=== PATIENT | male | born 1965 | race Caucasian/White ===

== ENCOUNTER 2021-08-08 11:24 | Emergency (ER) | payer OTHER ==
[~2021-08-08] VITALS: Ht 170.2 cm; Wt 68.2 kg
[2021-08-08 11:38] VITALS: BP 144/99
[2021-08-08] MEDS ORDERED: CLON-592 PO (11:44)
[2021-08-08 11:52] LABS: BASOPHILS % (AUTO) 0.3 % (0.0-2.0); EOSINOPHILS % (AUTO) 0.3 % (1.0-6.0); HEMATOCRIT 46.3 % (41-53); HEMOGLOBIN 15.8 g/dL (13.5-17.5); LYMPHOCYTES # (AUTO) 1.8 K/uL (1.0-4.8); LYMPHOCYTES % (AUTO) 23.4 % (22.0-44.0); MEAN CORPUSCULAR HGB CONC 34.2 G/dL (31.0-37.0); MEAN CORPUSCULAR VOLUME 88 fL (80-100); MONOCYTES # (AUTO) 0.9 K/uL (0.1-1.0); MONOCYTES % (AUTO) 11.4 % (2.0-9.0); NEUTROPHILS % (AUTO) 64.6 % (40.0-70.0); PLATELET COUNT (AUTO) 273 K/uL (150-450); RED BLOOD CELL COUNT(AUTO) 5.28 MIL/uL (4.50-5.90); RED CELL DISTRIBUTION WIDTH 13.6 % (11.5-14.5)
[2021-08-08 12:01] LABS: ANION GAP 9 mmol/L (8-16); CARBON DIOXIDE 23 mmol/L (22-29); CHLORIDE 103 mmol/L (98-107); GLUCOSE,RANDOM 122 mg/dL (70-110); POTASSIUM 3.6 mmol/L (3.5-5.1); SODIUM SERUM 135 mmol/L (136-145); UREA NITROGEN, BLOOD 7 mg/dL (7-18)
[2021-08-08 12:02] LABS: GLOMERULAR FILTR. RATE CALC > 60 mL/min (>60)
[2021-08-08 12:08] LABS: ALANINE AMINOTRANSFERASE 20 U/L (12-78); ALBUMIN 4.1 g/dL (3.4-5.0); ALKALINE PHOSPHATASE 110 U/L (46-116); ASPARTATE AMINOTRANSFERASE 19 U/L (15-37); BILIRUBIN,TOTAL 0.5 mg/dL (0.1-1.0)
[2021-08-08] MEDS ORDERED: LORazepam 1 MG TABLET PO ONE (12:30)
[2021-08-08] MEDS ORDERED: IBUP-1554 PO (12:34)
[2021-08-08] MEDS ORDERED: CLON-595 PO (12:34)
== END 2021-08-08 13:10 | disposition home or self-care (01) ==
LOC: EMS 11:24
DX: F41.1 Generalized anxiety disorder (principal); R45.851 Suicidal ideations; G89.29 Other chronic pain; M54.9 Dorsalgia, unspecified; J45.909 Unspecified asthma, uncomplicated; F17.210 Nicotine dependence, cigarettes, uncomplicated; Z88.0 Allergy status to penicillin; Z79.899 Other long term (current) drug therapy
CPT/HCPCS: 36415; 80053; 85025; 99285; G0480